=== PATIENT | male | born 1960 | race Caucasian/White ===

== ENCOUNTER 2022-01-12 18:20 | Emergency (ER) | payer OTHER ==
[2022-01-12] MEDS ORDERED: TETRACAINE 0.5% STERI-UNIT SOL OP ONE (18:57)
[2022-01-12] MEDS ORDERED: Erythromycin 1 GM ONE (18:57)
[2022-01-12] MEDS ORDERED: Fluor-I-Strip/Ful-Flo OP ONE (18:58)
[2022-01-12] MEDS ORDERED: Adacel Vial IM ONE ×2 (19:51→19:55)
--- NOTE | 2022-01-12 19:51 | ERPHSYRPT ---
- History of Present Illness Time Seen by Provider: 01/12/22 18:35 Exam Limitations: no limitations Patient Subjective Stated Complaint: Pt states that prior to an MRI yesterday he was working on a car and got a lot of rust in his eye and he flushed his eyes and thought he had it all out, he then went to get his MRI and afterwards when he walked out into the sun his eyes started watering and he started rubbing his eyes and now his eyes are red and his vision is blurred Triage Nursing Assessment: Pt was brought to the ER by his , hypertensive, rates pain in his eyes as 6/10, riaz vision is 20/100 and each individual eyes is 20/100, pulses normal, skin n/w/d Physician History: Patient is a 61-year-old male presents to emergency department for evaluation of irritation to both eyes. Patient states he was assisting a car for an oil leak. Patient looked up towards the chassis and dirt and rocks fell into his eye. Patient irrigated his eye. Patient went to a scheduled MRI. MRI was completed and shortly thereafter patient walked outside and states the son caused a burning sensation of his eye. Patient's eyes became to tear. Patient eyes are blurry. Symptoms are constant. Otherwise no trauma. No fever. No headache. No nausea or vomiting. Symptoms are mild to moderate in intensity. No specific worsening improving factors. Patient voices no other complaints or concerns at this time. Timing/Duration: today Location: bilateral eyes Severity: moderate Apparent Injury: no Associated Symptoms: pain, burning, sensitivity to light Visual Assistive Devices: None (Patient states he needs glasses but he does not wear glasses) Chemical Exposure: No Trauma: No Welding Arc/Tanning Bed Exposure: No Allergies/Adverse Reactions: No Known Drug Allergies Allergy (Verified 01/12/22 18:38) Home Medications: Allopurinol 300 mg [Zyloprim 300 mg] 300 mg PO DAILY 01/12/22 [History] Amlodipine Besylate 10 mg PO DAILY 01/12/22 [History] Atorvastatin Calcium 20 mg PO DAILY 01/12/22 [History] Furosemide 20 mg [Lasix 20 mg] 20 mg PO DAILY 01/12/22 [History] Gabapentin 100 mg [Neurontin 100 MG] 300 mg PO TID 01/12/22 [History] Levothyroxine Sodium 25 mcg PO DAILY 01/12/22 [History] Meloxicam 15 mg [Meloxicam 15 MG] 15 mg PO DAILY 01/12/22 [History] Metoprolol Tartrate [Lopressor] 50 mg PO BID 01/12/22 [History] Travel Risk - International Travel Have you traveled outside of the country in past 3 weeks: No - Coronavirus Screening Are you exhibiting any of the following symptoms?: No Close contact with a COVID-19 positive Pt in past 14-21 Days: No - Vaccine Status Have you recieved a Covid-19 vaccination: Yes Digital Sales Assistant: Moderna - Vaccination Dates Date of 2cond Vaccination (if applicable): 12/2020 - Review of Systems Constitutional: No Symptoms, No Fever, No Chills Eyes: No Symptoms Ears, Nose, & Throat: No Symptoms Respiratory: No Symptoms, No Cough, No Dyspnea Cardiac: No Symptoms, No Chest Pain, No Edema, No Syncope Abdominal/Gastrointestinal: No Symptoms, No Abdominal Pain, No Nausea, No Vomiting, No Diarrhea Genitourinary Symptoms: No Symptoms, No Dysuria Musculoskeletal: No Symptoms, No Back Pain, No Neck Pain Skin: No Symptoms, No Rash Neurological: No Symptoms, No Dizziness, No Focal Weakness, No Sensory Changes Psychological: No Symptoms Endocrine: No Symptoms Hematologic/Lymphatic: No Symptoms Immunological/Allergic: No Symptoms All Other Systems: Reviewed and Negative - Past Medical History Pertinent Past Medical History: Yes Cardiac History: Hypertension Endocrine Medical History: Hypothyroidism Musculoskeletal History: Arthritis Male Reproductive Disorders: Prostate Problems Other Medical History: gout - Past Surgical History Past Surgical History: Yes Gastrointestinal: Appendectomy Musculoskeletal: Orthopedic Surgery Male Surgical History: Prostate Surgery Other Surgical History: rotator cuff, multiple back - Social History Smoking Status: Never smoker Exposure to second hand smoke: No Drug Use: none Patient Lives Alone: No - Nursing Vital Signs Nursing Vital Signs: Initial Vital Signs Temperature 98.0 F 01/12/22 18:28 Pulse Rate 86 01/12/22 18:28 Blood Pressure 170/96 01/12/22 18:28 O2 Sat by Pulse Oximetry 96 01/12/22 18:28 Pain Scale Pain Intensity 6 - Physical Exam General Appearance: no apparent distress Vision Acuity Degree Evaluation Phase: Uncorrected Vision Acuity Right Eye: 20/50 Vision Acuity Left Eye: 20/50 Intraocular Pressure (Tonopen): left (9) Eye Exam: right eye: corneal abrasion (Corneal abrasion at 11:00), bilateral eye: normal inspection, PERRL, EOMI, other (Negative Bea sign bilaterally) Ears, Nose, Throat Exam: normal ENT inspection, TMs normal, pharynx normal Neck Exam: normal inspection, non-tender, supple, full range of motion Respiratory Exam: normal breath sounds, chest tenderness, lungs clear, respiratory distress Cardiovascular Exam: regular rate/rhythm, normal heart sounds, normal peripheral pulses Gastrointestinal Exam: soft, normal bowel sounds, tenderness, No distention Extremity Exam: normal inspection, normal range of motion, pelvis stable Neurologic: alert, oriented x 3, cooperative, staff electronic warfare officer II-XII nml as tested Skin Exam: normal color, warm, dry, rash Lymphatic: No adenopathy SpO2 Interpretation: normal SpO2: 95 O2 Delivery: Room Air - Course Nursing assessment & vital signs reviewed: Yes Ordered Tests: Medication Summary Discontinued Medications Generic Name Dose Route Start Last Admin Trade Name Freq PRN Reason Stop Dose Admin Diphtheria/Tetanus/Acell Pertussis 0.5 ml 01/12/22 19:51 Tdap --Diph,Pertuss(Acell),Tet Vac/Pf 0.5 Ml Vial IM 01/12/22 19:52 .ONCE ONE Erythromycin Confirm 01/12/22 18:57 Erythromycin Base 1 Gm Tube Eye Ointment Administered 01/12/22 18:58 Dose 1 gm .ROUTE .STK-MED ONE Fluorescein Sodium Confirm 01/12/22 18:58 Fluorescein Sodium 1 Mg/Strip Strip Administered 01/12/22 18:59 Dose 1 mg OP .STK-MED ONE Tetracaine HCl Confirm 01/12/22 18:57 Tetracaine Hcl/Pf 4 Ml Bottle Administered 01/12/22 18:58 Dose 4 ml OP .STK-MED ONE - Progress Progress: improved Progress Note: Debris observed in left eye. Debris observed in right eye however patient also has a corneal abrasion at 11:00. Eye was irrigated. Eye pressures are within normal limits. Erythromycin ointment applied to patient's eye. A prescription for the same will be forwarded to patient's pharmacy. Patient will follow up with an custodial maintenance worker within 48 hours for evaluation. Tetanus updated Portions of this note were created with voice recognition technology. There may be grammatical, spelling, punctuation or sound alike errors 01/12/22 19:56 Counseled pt/family regarding: diagnosis, need for follow-up - Departure Departure Disposition: Home Clinical Impression: Corneal abrasion right eye, Eye foreign bodies Condition: Stable Critical Care Time: No Referrals: WILSON GRIJALVA MD [Primary Care Provider] - Follow up/PCP as directed TIMMY BARTHOLOMEW OD [NON-STAFF PHY W/O PRIVILEGES] - Follow up/PCP as directed Additional Instructions: Discharge/Care Plan TESSIE CONRAD was seen on 01/12/22 in the Emergency Room. The patient was counseled regarding Diagnosis,Lab results, Imaging studies, need for follow up and when to return to the Emergency Room. Prescriptions given: Discharge Note I have spoken with the patient and/or caregivers. I have explained the patient's condition, diagnosis and treatment plan based on the information available to me at this time. I have answered the patient's and/or caregiver's questions and addressed any concerns. The patient and/or caregivers have as good understanding of the patient's diagnosis, condition and treatment plan as can be expected at this point. The vital signs have been stable. The patient's condition is stable and appropriate for discharge from the emergency department. The patient will pursue further outpatient evaluation with the primary care physician or other designated or consulting physician as outlined in the discharge instructions. The patient and/or caregivers are agreeable to this plan of care and follow-up instructions have been explained in detail. The patient and/or caregivers have received these instruction. The patient/and or caregivers are aware that any significant change in condition or worsening of symptoms should prompt an immediate return to this or the closest emergency department or call 911. Prescriptions: Erythromycin Base 3.5 gm [Erythromycin 3.5 GM OPHTH.] 3.5 gm OP QID #1
[2022-01-12 20:17] VITALS: BP 154/90; PULSE 70; O2SAT 97
== END 2022-01-12 20:17 | disposition home or self-care (01) ==
LOC: ED 18:20
DX: T15.01XA Foreign body in cornea, right eye, initial encounter (principal); T15.91XA Foreign body on external eye, part unspecified, right eye, initial encounter; T15.92XA Foreign body on external eye, part unspecified, left eye, initial encounter; W20.8XXA Other cause of strike by thrown, projected or falling object, initial encounter; H53.8 Other visual disturbances; I10 Essential (primary) hypertension; Z79.899 Other long term (current) drug therapy
CPT/HCPCS: 90471; 90715; 99283; A9270-GY